=== PATIENT | female | born 1935 | race Caucasian/White ===

== ENCOUNTER 2020-10-20 15:16 | Emergency (ER) | payer MEDICARE, BC | END 2020-10-20 15:59 | disposition home or self-care (01) | LOC: ERS 15:16 | DX: S61.412D Laceration without foreign body of left hand, subsequent encounter (principal); S71.111D Laceration without foreign body, right thigh, subsequent encounter; R03.0 Elevated blood-pressure reading, without diagnosis of hypertension; W01.198D Fall on same level from slipping, tripping and stumbling with subsequent striking against other object, subsequent encounter ==

== ENCOUNTER 2020-11-23 14:18 | Emergency (ER) | payer MEDICARE, BC | END 2020-11-23 15:47 | disposition home or self-care (01) | LOC: ERS 14:18 | DX: R23.4 Changes in skin texture (principal); S71.111D Laceration without foreign body, right thigh, subsequent encounter; G43.909 Migraine, unspecified, not intractable, without status migrainosus; Z79.899 Other long term (current) drug therapy; W45.8XXD Other foreign body or object entering through skin, subsequent encounter | CPT/HCPCS: 99282 ==

== ENCOUNTER 2022-12-19 14:28 | Outpatient (CLI) | payer MEDICARE, BC | END 2022-12-19 14:29 | disposition home or self-care (01) | LOC: BICCT 14:28 | PROVIDERS: ATTEND Family Medicine | DX: R07.89 Other chest pain (principal); R91.1 Solitary pulmonary nodule | CPT/HCPCS: 71250 ==

== ENCOUNTER 2023-05-01 15:08 | Emergency (ER) | payer MEDICARE, BC | END 2023-05-01 17:50 | disposition home or self-care (01) | LOC: ERS 15:08 | DX: S00.03XA Contusion of scalp, initial encounter (principal); S02.32XA Fracture of orbital floor, left side, initial encounter for closed fracture; I10 Essential (primary) hypertension; W18.30XA Fall on same level, unspecified, initial encounter | CPT/HCPCS: 70450 ==

== ENCOUNTER 2024-07-10 10:33 | Emergency (ER) | payer MEDICARE, BC ==
[2024-07-10] MEDS ORDERED: traMADol HCl 50 MG TAB ONE (11:54)
== END 2024-07-10 15:10 | disposition home or self-care (01) ==
LOC: ERS 10:33
DX: M71.21 Synovial cyst of popliteal space [Baker], right knee (principal); M17.11 Unilateral primary osteoarthritis, right knee; I10 Essential (primary) hypertension; X50.9XXA Other and unspecified overexertion or strenuous movements or postures, initial encounter; Z79.899 Other long term (current) drug therapy